=== PATIENT | male | born 1975 | race Caucasian/White ===

== ENCOUNTER 2016-09-20 08:34 | Emergency (ER) | payer MEDICAID ==
[~2016-09-20] VITALS: Ht 165.1 cm; Wt 107.0 kg
[2016-09-20 08:37] VITALS: Ht 165.1 cm; Wt 107.0 kg
[2016-09-20 09:30] LABS: ADD SCAN DIFF NO
[2016-09-20 09:39] LABS: BASOPHILS % 0.5 % (0.0-2.0); EOSINOPHILS # 1.3 10^3/ul (0.0-0.5); EOSINOPHILS % 15.1 % (0.0-7.0); HEMATOCRIT 47.9 % (42.0-52.0); HEMOGLOBIN 15.8 g/dl (14.0-18.0); LYMPHOCYTES # 2.1 10^3/ul (0.8-2.9); LYMPHOCYTES % 24.4 % (15.0-51.0); MEAN CORPUSCULAR VOLUME 87.9 fl (82.0-101.0); MEAN PLATELET VOLUME 9.9 fl (7.4-10.4); MONOCYTE # 0.4 10^3/ul (0.3-0.9); MONOCYTES % 4.7 % (0.0-11.0); NEUTROPHIL # 4.7 10^3/ul (1.6-7.5); NEUTROPHILS % 54.9 % (39.0-77.0); PLATELET COUNT 241 10^3/UL (140-415); RED BLOOD COUNT 5.45 10^6/ul (4.70-6.10); RED CELL DISTRIBUTION WIDTH 12.5 % (11.5-14.5); WHITE BLOOD COUNT 8.5 10^3/ul (4.8-10.8)
[2016-09-20 09:51] LABS: INR 0.98
[2016-09-20 09:52] LABS: ANION GAP 16 (8-16); BLOOD UREA NITROGEN 16 mg/dl (7-20); CALCIUM 9.2 mg/dl (8.4-10.2); CARBON DIOXIDE 27 mmol/L (21-31); CHLORIDE 98 mmol/L (97-110); GLUCOSE 261 mg/dl (70-220); PARTIAL THROMBOPLASTIN TIME 25.9 Sec (25.0-35.0); POTASSIUM 4.3 mmol/L (3.5-5.1); SODIUM 137 mmol/L (135-144)
--- NOTE | 2016-09-20 09:53 | RADRPT ---
PROCEDURE: CT Brain without contrast. CLINICAL INDICATION: Facial numbness, headache. TECHNIQUE: A CT of the brain was performed on a [email or web address] 64-slice CT scanner utilizing axial imaging from the skull base through the vertex without IV contrast. Multiplanar reformatted images were made. Images were reviewed on a PACS workstation. The CTDIvol is 43.77 mGy and the DLP is 720 .23 mGycm. One or the following dose reduction techniques were used: -Automated exposure control. -Adjustment of the mA and/or KV according to patient's size. -Use of iterative reconstruction technique. COMPARISON: None FINDINGS: There is no intracranial hemorrhage, mass effect, or midline shift. No extra-axial fluid collection is seen. The ventricles and sulci are normal in size and configuration. The density of the brain is normal, and the dudley white matter differentiation appears well-preserved. There is minimal mucosal thickening in the ethmoid air cells. The mastoid air cells appear aerated. The osseous calvarium appears intact.. IMPRESSION: 1. No acute intracranial process identified. 2. Mild ethmoid sinus mucosal thickening suggesting inflammatory change. RPTAT: [facility] Physician Alfredo Date Time Electronically viewed and signed by Physician Alfredo on 09/20/2016 09:53 /
[2016-09-20 10:04] LABS: TROPONIN-I < 0.012 ng/ml (0.00-0.12)
--- NOTE | 2016-09-20 10:13 | RADRPT ---
PROCEDURE: Chest x-ray CLINICAL INDICATION: Chest pain TECHNIQUE: Chest single view COMPARISON: None FINDINGS: The heart is normal in size. The pulmonary vessels are normal in caliber. The lungs are clear. Th e costophrenic angles are sharp. The visualized bony thorax is unremarkable. IMPRESSION: No acute cardiopulmonary disease. Low lung volumes RPTAT: HH .John Meek MD, Date Time Electronically viewed and signed by .John Meek MD, MD on 09/20/2016 10:13 .W/
[2016-09-20] MEDS ORDERED: METF500T4 PO (10:42)
[2016-09-20] MEDS ORDERED: IBUP-1542 PO (10:42)
--- NOTE | 2016-09-20 11:32 | ERD ---
ER Documentation Chief Complaint Date/Time DATE: 09/20/16 TIME: 11:24 Chief Complaint Pt with BULLOCK, numbness to mouth, blurry vision X 1 day. Nuero intact. HPI This is a 41-year-old male that presents to the ER with multiple complaints. Patient states that yesterday at 9 AM he began to experience blurry vision and dizziness. The dizziness was described as a spinning sensation after this he began to feel numbness to his tongue and lips. Patient then became very weak and states that he felt as if he cannot walk and started experiencing chest pressure. Chest pressure lasted more than an hour and it was located in the center of his chest, nonradiating. Patient denies exertional pain as he states he cannot walk because his legs felt weak. Patient denies any shortness of breath. He does not have any family history of early onset MIs. He denies any diabetes or hypertension. Patient states that he did have one episode of nonbilious nonbloody vomiting and did feel nauseous. He denies any diarrhea. He denies any fevers or chills. Today patient feels a little bit better, however does feel some minor chest discomfort. He denies any dizziness or changes in vision today. She denies any head trauma. He denies any numbness or tingling of his extremities. ROS 12 point review of systems was done, all negative except per HPI. Medications Home Meds Active Scripts Metformin* (Glucophage*) 500 Mg Tab, 500 MG PO DAILY, #20 TAB Prov:RUSSEL CORTES 09/20/16 Ibuprofen* (Motrin*) 600 Mg Tab, 600 MG PO Q6, #30 TAB Prov:RUSSEL CORTES 09/20/16 Allergies Allergies: Coded Allergies: No Known Allergy (Unverified , 09/20/16) PMhx/Soc Medical and Surgical Hx: pt denies Medical Hx, pt denies Surgical Hx Hx Alcohol Use: No Hx Substance Use: No Hx Tobacco Use: No Physical Exam Vitals Vital Signs Date Time Temp Pulse Resp B/P Pulse Ox O2 Delivery O2 Flow Rate FiO2 09/20/16 08:37 98.0 82 16 135/82 97 Physical Exam GENERAL: The patient is well developed and appropriate for usual state of health , in no apparent distress. HEENT: Atraumatic. Conjunctivae are pink. Pupils equal, round, and reactive to light. Extraocular muscles are grossly intact. CHEST: Clear to auscultation bilaterally. There are no rales, wheezes or rhonchi. HEART: Regular rate and rhythm. No murmurs, clicks, rubs or gallops. ABDOMEN: Soft, nontender and nondistended. Good bowel sounds. No rebound or guarding. No gross peritonitis. No gross organomegaly or masses. No Butler sign or McBurney point tenderness. No pulsatile masses. BACK: No midline or flank tenderness. EXTREMITIES: Equal pulses bilaterally. There is no peripheral clubbing, cyanosis or edema. No focal swelling or erythema. Full range of motion. Grossly neurovascularly intact. NEURO: Alert and oriented. Cranial nerves II through XII are intact. Motor strength in all 4 extremities with 5/5 strength. Sensation grossly intact. Normal speech and gait. SKIN: There is no apparent rash or petechia. The skin is warm and dry. Result Diagram: 09/20/1625 09/20/1625 Results 24 hrs Laboratory Tests Test 09/20/16 09:25 White Blood Count 8.510^3/ul Red Blood Count 5.4510^6/ul Hemoglobin 15.8g/dl Hematocrit 47.9% Mean Corpuscular Volume 87.9fl Mean Corpuscular Hemoglobin 29.0pg Mean Corpuscular Hemoglobin Concent 33.0g/dl Red Cell Distribution Width 12.5% Platelet Count 07243^3/UL Mean Platelet Volume 9.9fl Neutrophils % 54.9% Lymphocytes % 24.4% Monocytes % 4.7% Eosinophils % 15.1% Basophils % 0.5% Nucleated Red Blood Cells % 0.0/100WBC Neutrophils # 4.710^3/ul Lymphocytes # 2.110^3/ul Monocytes # 0.410^3/ul Eosinophils # 1.310^3/ul Basophils # 0.010^3/ul Nucleated Red Blood Cells # 0.010^3/ul Prothrombin Time 13.0Sec Prothrombin Time Ratio 1.0 INR International Normalized Ratio 0.98 Activated Partial Thromboplast Time 25.9Sec Sodium Level 137mmol/L Potassium Level 4.3mmol/L Chloride Level 98mmol/L Carbon Dioxide Level 27mmol/L Anion Gap 16 Blood Urea Nitrogen 16mg/dl Creatinine 0.70mg/dl Glucose Level 261mg/dl Calcium Level 9.2mg/dl Troponin I < 0.012ng/ml Procedures/MDM Differential diagnosis includes but is not limited to; STEMI, dissection, pneumothorax, PE, esophageal rupture, tamponade, pneumonia, pericarditis, GERD, musculoskeletal, endocarditis, anxiety. This is a 41-year-old male that presents to the ER with chest pressure for the last day. Patient's EKG was taken and read by 79bpm no ST elevation or t wave inversion. Patient's heart score is 1. At this time suspicion for acute cardiac etiology is low. Patient was found to have hyperglycemia, suspicion for diabetes is high. Since symptoms may be attributed to diabetes. Patient will be sent home with metformin. Patient is neurologically intact with no focal neurological deficits, and patient's CT head was normal. Suspicion for acute intracranial pathology is low. Patient was told to follow-up with his primary care doctor within 1-2 days and to get his hemoglobin A1c checked. I shared my medical decision making with the patient he understands and agrees with plan. Departure Diagnosis: Primary Impression: Hyperglycemia Additional Impression: Multiple complaints Condition: Stable Patient Instructions: Hyperglycemia (High Blood Sugar) Additional Instructions: Llame al doctor MAANA y radha cheikh NEMESIO PARA DENTRO DE 1-2 SAM.Dgale a la secretaria que nosotros le instruimos hacer esta nemesio.Avise o llame si wasserman condicin se empeora antes de la nemesio. Regresa aqui si peor o no mejor. NECESITA IR CON [facility] DOCTOR DE [place] PARA QUE LE IRAJ UN EXAMEN DE LA HEMOGLOBINA A1C. MUY IMPORTANTE! RUSSEL CORTES Sep 20, 2016 11:32
== END 2016-09-20 10:48 | disposition home or self-care (01) ==
LOC: FTE 08:34
DX: R73.9 Hyperglycemia, unspecified (principal); R20.0 Anesthesia of skin; H53.8 Other visual disturbances; R42 Dizziness and giddiness; R07.9 Chest pain, unspecified; Z79.84 Long term (current) use of oral hypoglycemic drugs
CPT/HCPCS: 36415; 70450; 71010; 80048; 84484; 85025; 85610; 85730; 93005; Z7502

== ENCOUNTER 2016-11-16 12:56 | Emergency (ER) | payer MEDICAID, OTHER ==
[~2016-11-16] VITALS: Ht 160 cm; Wt 108.8 kg
[~2016-11-16 12:56] MED LIST: IBUP-1542 PO; METF500T4 PO
[2016-11-16 12:58] VITALS: Ht 160 cm; Wt 108.8 kg
[2016-11-16] MEDS ORDERED: IBUPROFEN 800 MG TAB PO ONE (15:30)
--- NOTE | 2016-11-16 16:21 | RADRPT ---
PROCEDURE: XR Lumbar Spine. CLINICAL INDICATION: Lumbar spine pain. TECHNIQUE: AP, lateral, and cone-down lateral view of the lumbar spine were obtained. COMPARISON: No prior studies are available for comparison. FINDINGS: The alignment of the lumbar spine is within normal limits. There are anterior osteophytes from L4-S 1 with moderate narrowing of the intervertebral disc spaces at L5-S1. There are moderate associated discogenic endplate changes at this level. The vertebral body heights all. There is severe facet s pondylosis at L5-S1 with suggestion of neural foraminal narrowing at this level. The remaining neur al foramina appear patent. The paraspinal soft tissues unremarkable. There is no evidence of fract ure. The posterior elements are unremarkable. IMPRESSION: 1. 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 2. Severe facet spondylosis at L5-S1 with suggestion of neural foraminal narrowing at this level. 3. No evidence of acute fracture. RPTAT: [facility]AS .Tony Mahmood MD, MD Date Time Electronically viewed and signed by .Tony Mahmood MD, on 11/16/2016 16:21 .S/
--- NOTE | 2016-11-16 16:23 | RADRPT ---
PROCEDURE: XR Knee. CLINICAL INDICATION: Right knee pain status post fall. TECHNIQUE: AP, lateral and oblique views of the right knee were obtained. The images reviewed on a PACS workstation. COMPARISON: None available FINDINGS: The distal femur and proximal tibia/fibula are normal in appearance. There is no fracture. There ar e severe degenerative changes of the lateral compartment with small medial osteophytes and severe joss int space narrowing. There is prominent subchondral sclerosis in the lateral compartment. There is a prominent osteophyte projected over the anterior knee on the lateral view, incompletely evaluated . There are mild degenerative changes of the medial compartment. There is no significant joint eff usion. Hoffa's fat pad is normal in appearance. There are mild degenerative changes of the patello femoral joint. The soft tissues are unremarkable. IMPRESSION: 1. Severe lateral and mild medial and patellofemoral compartment degenerative changes. 2. Prominent osteophyte central portion of the knee, likely related to remote prior injury. CT may be helpful for further evaluation. 3. No significant joint effusion. RPTAT: [facility]AS .Tony aMhmood MD, Date Time Electronically viewed and signed by .Tony Mahmood MD, on 11/16/2016 16:22 .S/
[2016-11-16] MEDS ORDERED: IBUP-1542 PO (16:37)
[2016-11-16] MEDS ORDERED: TRAM50TA2 PO (16:37)
--- NOTE | 2016-11-16 16:41 | ERD ---
ER Documentation Chief Complaint Date/Time DATE: 11/16/16 TIME: 16:39 Chief Complaint FELL FROM LADDER ABOUT 4 FEET R KNEE AND R SIDE OF TORSO IN PAIN HPI This 41-year-old male complains of low back pain and right knee pain after falling approximately 4 feet off stepladder today. He fell backwards. Denies any head injury, loss of consciousness, weakness, bowel or bladder incontinence. ROS All systems reviewed and are negative except as per history of present illness. Medications Home Meds Active Scripts Tramadol HCl (Tramadol HCl) 50 Mg Tablet, 50 MG PO Q4 Y for PAIN, #15 TAB Prov:ZAC GUTHRIE MD 11/16/16 Ibuprofen* (Motrin*) 600 Mg Tab, 600 MG PO Q6, #20 TAB Prov:ZAC GUTHRIE MD 11/16/16 Metformin* (Glucophage*) 500 Mg Tab, 500 MG PO DAILY, #20 TAB Prov:SOPHIA,URSSEL C 09/20/16 Ibuprofen* (Motrin*) 600 Mg Tab, 600 MG PO Q6, #30 TAB Prov:SOPHIARUSSEL C 09/20/16 Allergies Allergies: Coded Allergies: No Known Allergy (Unverified , 09/20/16) PMhx/Soc History of Surgery: Yes (appendectomy.) Anesthesia Reaction: No Hx Neurological Disorder: No Hx Respiratory Disorders: No Hx Cardiac Disorders: No Hx Psychiatric Problems: No Hx Miscellaneous Medical Probl: No Hx Alcohol Use: No Hx Substance Use: No Hx Tobacco Use: No Smoking Status: Never smoker Physical Exam Vitals Vital Signs Date Time Temp Pulse Resp B/P Pulse Ox O2 Delivery O2 Flow Rate FiO2 11/16/16 12:58 99.3 91 18 154/89 97 Physical Exam Const: []Alert, not ill-appearing. Head: Atraumatic Eyes: Normal Conjunctiva ENT: Normal External Ears, Nose and Mouth. Neck: Full range of motion..~ No meningismus. Resp: Clear to auscultation bilaterally Cardio: Regular rate and rhythm, no murmurs Abd: Soft, non tender, non distended. Normal bowel sounds Skin: No petechiae or rashes Back: No midline or flank tenderness. Tenderness right L4-5 paraspinous muscle area. No midline tenderness or deformities. Ext: No cyanosis, or edema. . There is mild generalized tenderness primarily the right knee and the lateral aspect. There is no effusion, deformities, erythema, bleeding. There is no calf swelling or Homans sign. Neur: Awake and alert Psych: Normal Mood and Affect Results 24 hrs Current Medications Medications (Trade) Dose Ordered Sig/Denise Route PRN Reason Start Time Stop Time Status Last Admin Dose Admin Ibuprofen (Motrin) 800 mg ONCE ONCE PO 11/16/16 15:30 11/16/16 15:31 DC 11/16/16 15:07 Procedures/MDM X-ray LS-Spine 3V Interpreted by me: Bones: No fracture, or lytic lesions Joints: No dislocation Foreign body: None. Impression-degenerative changes lumbar spine without fracture dislocation. X-ray Knee 3V Interpreted by me: Bones: No fracture Joints: No dislocation Foreign body: None. Impression have degenerative changes right knee without fracture dislocation. Patient presents with low back pain right knee pain after falling backwards 4 feet off a stepladder today. Signs and symptoms do not suggest injury, neurologic deficit, infection, fracture, dislocation. He does have severe arthritis noted on the right knee x-ray as well as degenerative changes on low back x-ray. Patient will be given copies of results, tramadol and ibuprofen for pain and instructions for primary care and orthopedic follow-up. Departure Diagnosis: Primary Impression: Knee sprain Encounter type: initial encounter Involved ligament of knee: unspecified ligament Laterality: right Qualified Code: S83.91XA - Sprain of right knee, unspecified ligament, initial encounter Additional Impressions: Back sprain Fall Encounter type: initial encounter Qualified Code: W19.XXXA - Fall, initial encounter Patient Instructions: Back Sprain/Strain, Fall, Mechanical, Knee Sprain, Osteoarthritis Additional Instructions: NO HAY FRACTURA . TIENE MAL ARTRITIS. Cheque otro vez con mathias doctor primario en el proximo loomis or regresa para mas o nueva simptomas. ZAC GUTHRIE MD Nov 16, 2016 16:41
== END 2016-11-16 16:47 | disposition home or self-care (01) ==
LOC: FTE 12:56
DX: S83.91XA Sprain of unspecified site of right knee, initial encounter (principal); S33.5XXA Sprain of ligaments of lumbar spine, initial encounter; W11.XXXA Fall on and from ladder, initial encounter; Y92.9 Unspecified place or not applicable; Z79.84 Long term (current) use of oral hypoglycemic drugs
CPT/HCPCS: 72100; 73562

== ENCOUNTER 2016-12-15 09:52 | Emergency (ER) | END 2016-12-15 12:15 | disposition home or self-care (01) | DX: K04.7 Periapical abscess without sinus (principal); Z79.84 Long term (current) use of oral hypoglycemic drugs ==

== ENCOUNTER 2017-07-20 15:17 | Emergency (ER) | END 2017-07-20 17:56 | disposition home or self-care (01) ==